=== PATIENT | female | born 2000 | race Two or more races ===

== ENCOUNTER 2023-07-02 12:49 | Emergency (ER) | payer SELFPAY ==
[2023-07-02 12:58] VITALS: BP 116/64; PULSE 94; RESP 18; TEMP 98.8; BMI 23.0
== END 2023-07-02 14:25 | disposition home or self-care (01) ==
LOC: JERFT 12:49
DX: L05.91 Pilonidal cyst without abscess (principal)
CPT/HCPCS: 99282-25

== ENCOUNTER 2023-07-04 14:47 | Emergency (ER) | payer SELFPAY ==
[2023-07-04 14:52] VITALS: BP 105/67; PULSE 81; RESP 19; TEMP 98.3; BMI 23.0
== END 2023-07-04 18:17 | disposition home or self-care (01) ==
LOC: JERFT 14:47
DX: Z48.01 Encounter for change or removal of surgical wound dressing (principal); L02.91 Cutaneous abscess, unspecified
CPT/HCPCS: 99282-25